=== PATIENT | female | born 1990 | race Caucasian/White ===

== ENCOUNTER 2019-02-19 09:12 | Day surgery (SDC) | payer OTHER ==
[2019-02-19] MEDS: CEFAZOLIN 2 GM/50 ML (PMX) 50 ML IVPB (12:30)
[2019-02-19] MEDS ORDERED: SOD CHLORIDE 0.9% 1,000 ML IV (12:30)
[2019-02-19] MEDS ORDERED: NEOSTIGMINE 3 MG/3 ML SYRINGE (13:04)
[2019-02-19] MEDS ORDERED: GLYCOPYRROLATE 0.4 MG INJ (13:04)
[2019-02-19] MEDS ORDERED: PROPOFOL 20 ML (13:04)
[2019-02-19] MEDS ORDERED: CEFAZOLIN 1 GM INJ (13:04)
[2019-02-19] MEDS ORDERED: ROCURONIUM 50 MG INJ (13:04)
[2019-02-19] MEDS ORDERED: FENTAnyl 50 MCG/ML VIAL ×2 (13:05→13:49)
[2019-02-19] MEDS ORDERED: DEXAMETHASONE 4 MG/ML 5 ML INJ (13:05)
[2019-02-19] MEDS ORDERED: ONDANSETRON 4 MG INJ (13:05)
[2019-02-19] MEDS ORDERED: MIDAZOLAM 1 MG/ML 2 ML INJ (13:05)
[2019-02-19] MEDS ORDERED: ROPIVACAINE 0.5 % 30 ML VIAL (13:10)
[2019-02-19] MEDS ORDERED: SUGAMMADEX SODIUM 200 MG/2 ML VIAL IV (13:38)
[2019-02-19] MEDS: FENTAnyl 50 MCG/ML VIAL IV ×3 (13:59→14:16)
[2019-02-19] MEDS ORDERED: EPHEDrine 25 MG/5 ML SYG IV (14:00)
[2019-02-19] MEDS ORDERED: LABETALOL HCL 20MG INJ IV (14:00)
[2019-02-19] MEDS ORDERED: DIPHENHYDRAMINE 50 MG INJ IV (14:00)
[2019-02-19] MEDS ORDERED: ONDANSETRON 4 MG INJ IV (14:00)
[2019-02-19] MEDS ORDERED: TRIMETHOBENZAMIDE 100 MG/ML VIAL IM (14:00)
[2019-02-19] MEDS ORDERED: MEPERIDINE 25 MG INJ IV (14:00)
[2019-02-19] MEDS ORDERED: HYDROmorphONE 1 MG/5 ML IV SYRINGE IV ×3 (14:00)
[2019-02-19] MEDS ORDERED: MIDAZOLAM 1 MG/ML 2 ML INJ IV (14:00)
[2019-02-19] MEDS ORDERED: FENTAnyl 50 MCG/ML VIAL IV (14:00)
[2019-02-19] MEDS ORDERED: IPRATROPIUM (NEB) 0.5 MG/2.5 ML AMP HHN (14:00)
[2019-02-19] MEDS ORDERED: ALBUTEROL 0.083% (NEB) 2.5 MG/3 ML AMP HHN (14:00)
[2019-02-19] MEDS ORDERED: OXYCODONE/ACETAMINOPHEN (5/325) TAB PO ×2 (14:00)
[2019-02-19] MEDS ORDERED: hydrALAzine 20 MG INJ IV (14:00)
[2019-02-19] MEDS: HYDROCODONE/APAP (5/325) TAB PO (14:20)
[2019-02-19] MEDS: DIAZEPAM 5 MG/ML SYG IV (14:29)
== END 2019-02-19 16:06 | disposition home or self-care (01) ==
LOC: SDS 09:12
DX: K43.6 Other and unspecified ventral hernia with obstruction, without gangrene (principal)
CPT/HCPCS: 49653; 84703